=== PATIENT | male | born 1950 | race Caucasian/White ===

== ENCOUNTER 2019-04-29 18:47 | Emergency (ER) | payer MEDICARE, MEDICAID ==
--- NOTE | 2019-04-29 18:57 | EDM.PDOC ---
<DayaтатьянаGibran - Last Filed: 04/29/19 19:00> ED HPI GENERAL MEDICAL PROBLEM - General Chief Complaint: Chest Pain Stated Complaint: Chest Pain Time Seen by Provider: 04/29/19 18:47 Source of Information: Reports: Patient, EMS Notes Reviewed, Intermediate Records, RN, RN Notes Reviewed - History of Present Illness INITIAL COMMENTS - FREE TEXT/NARRATIVE: Patient is brought to the ED at [facility] via EMS for the evaluation of chest pain that started around 13:30 this afternoon. The chest pain resolved prior to presentation to this ER. Patient stated to the NH staff he also felt nausea. NH also felt the patient was tachy. Upon arrival to ER, patient denies any chest pain, SOB, abdominal pain. Denies any N/V/D. No focal neurological problems. Patient states he feels "just fine." He denies any other complaints. Onset: Today Onset Date: 04/29/19 Onset Time: 13:30 - Related Data Allergies Allergy/AdvReac Type Severity Reaction Status Date / Time aripiprazole [From Abilify] Allergy Cannot Verified 04/29/19 19:07 Remember Home Meds: Home Meds Bisacodyl 10 mg RC ASDIRECTED PRN 05/02/17 [History] Bisacodyl [Laxative] 5 mg PO ASDIRECTED PRN 05/02/17 [History] Carvedilol [Coreg] 12.5 mg PO BID 05/02/17 [History] Citalopram Hydrobromide [Celexa] 20 mg PO DAILY 05/02/17 [History] Clopidogrel [Plavix] 75 mg PO DAILY 05/02/17 [History] Docusate Sodium/Sennosides [Senna Plus] 2 tab PO DAILY 05/02/17 [History] amLODIPine [Norvasc] 10 mg PO BEDTIME 05/02/17 [History] atorvaSTATin [Lipitor] 40 mg PO BEDTIME 05/02/17 [History] carBAMazepine [Tegretol] 200 mg PO BID 05/02/17 [History] Past Medical History Cardiovascular History: Reports: CAD, High Cholesterol, Hypertension Genitourinary History: Reports: Chronic Renal Insuffiency Neurological History: Reports: CVA Psychiatric History: Reports: Addiction, Bipolar, Dementia, Depression, Psychosis ED ROS GENERAL - Review of Systems Review Of Systems: See Below Constitutional: Denies: Fever, Chills Respiratory: Denies: Shortness of Breath, Cough Cardiovascular: Denies: Chest Pain, Palpitations GI/Abdominal: Denies: Abdominal Pain, Nausea, Vomiting Skin: Reports: No Symptoms Neurological: Reports: No Symptoms ED EXAM, GENERAL - Physical Exam Exam: See Below Exam Limited By: No Limitations General Appearance: Alert, No Apparent Distress Respiratory/Chest: No Respiratory Distress, Lungs Clear, Normal Breath Sounds Cardiovascular: Normal Peripheral Pulses, Regular Rate, Rhythm Peripheral Pulses: 2+: Radial (L), Radial (R) GI/Abdominal: Normal Bowel Sounds, Soft, Non-Tender Neurological: Alert, Oriented Skin Exam: Warm, Dry, Intact, Normal Color EKG INTERPRETATION EKG Date: 04/29/19 Time: 18:47 Rhythm: NSR Rate (Beats/Min): 85 Mcleod: Normal P-Wave: Present QRS: Normal ST-T: Normal QT: Normal SC/PQ Interval: 0.19 Comparison: NA - No Prior EKG EKG Interpretation Comments: 1. NSR 2. Early repolarization Course - Vital Signs Last Recorded V/S: Last Vital Signs Temp 36.8 C 04/29/19 19:09 Pulse 84 04/29/19 19:09 Resp 16 04/29/19 19:09 BP 156/82 H 04/29/19 19:09 Pulse Ox 96 04/29/19 19:09 - Orders/Labs/Meds Orders: Active Orders 24 hr Category Date Time Status EKG Documentation Completion [RC] STAT Care 04/29/19 18:54 Active Chest 1V Frontal [CR] Stat Exams 04/29/19 18:54 Taken COMPREHENSIVE METABOLIC PN,CMP [CHEM] Stat Lab 04/29/19 19:05 Received CREATINE KINASE,CK [CHEM] Stat Lab 04/29/19 19:05 Received TROPONIN I [CHEM] Stat Lab 04/29/19 19:05 Received Labs: Laboratory Tests 04/29/19 Range/Units 19:05 WBC 8.4 (4.0-10.0) x10^3/uL RBC 4.48 L (4.5-6.0) x10^6/uL Hgb 13.7 L D (14.0-18.0) g/dL Hct 40.7 (40.0-52.0) % MCV 90.8 D (78.0-93.0) fL MCH 30.6 (26.0-32.0) pg MCHC 33.7 (32.0-36.0) g/dL RDW Coeff of Kassie 13.0 (10.0-15.0) % Plt Count 240 (130-400) x10^3/uL Add Manual Diff Yes Neutrophils % (Manual) 65 (50-80) % Band Neutrophils % 2 (0-6) % Lymphocytes % (Manual) 20 L (25-50) % Monocytes % (Manual) 10 (2-11) % Eosinophils % (Manual) 3 (0-4) % Departure - Departure Disposition: DC/Tfer to SNF 03 Clinical Impression: Atypical chest pain Forms: ED Department Discharge Additional Instructions: Plan 1. Rest today 2. Labwork negative for any acute coronary syndrome. Negative EKG, negative troponin 3. Follow up with primary provider as appropriate. - Problem List Review Problem List Initiated/Reviewed/Updated: Yes <Danny Casey - Last Filed: 04/29/19 20:41> Course - Re-Assessments/Exams Free Text/Narrative Re-Assessment/Exam: 04/29/19 19:30 Assumed care of patient at shift change. Patient has no complaints is quite confused and trying to ambulate unassisted. 04/29/19 20:40 Patient returned to care center via ambulance. Stable here in the ER. Departure - Departure Time of Disposition: 20:21 Reason for Transfer *Q: Other Condition: Fair - Problem List & Annotations (1) Atypical chest pain SNOMED Code(s): 618091788 Code(s): R07.89 - OTHER CHEST PAIN Status: Acute Priority: Low Current Visit: Yes - Problem List Review Problem List Initiated/Reviewed/Updated: Yes - Assessment/Plan Assessment:: atypical chest/abdominal pain Plan: Plan 1. Rest today 2. Labwork negative for any acute coronary syndrome. Negative EKG, negative troponin 3. Follow up with primary provider as appropriate.
[2019-04-29 19:41] LABS: CHLORIDE,CL 107 mmol/L (98-107); SODIUM,NA 141 mmol/L (136-145)
[2019-04-29 19:42] LABS: ANION GAP 14.6 mmol/L (10-20)
--- NOTE | 2019-04-30 09:31 | CR ---
[id number] RAD/RAD Chest PA or AP 1V EXAM: RAD Chest PA or AP 1V INDICATION: CHEST PAIN COMPARISON: August 15, 2010. DISCUSSION: Mild cardiomegaly central vascular congestion. No infiltrate, effusion, pneumothorax, or edema. IMPRESSION: No acute findings in the chest. Joe Verdin MD 04/29/19 1943 Thank you for allowing us to participate in the care of your patient.
== END 2019-04-29 20:21 ==
LOC: VM.ED 18:47
DX: R07.89 Other chest pain (principal); E78.00 Pure hypercholesterolemia, unspecified; I12.9 Hypertensive chronic kidney disease with stage 1 through stage 4 chronic kidney disease, or unspecified chronic kidney disease; N18.9 Chronic kidney disease, unspecified; Z86.73 Personal history of transient ischemic attack (TIA), and cerebral infarction without residual deficits; Z79.899 Other long term (current) drug therapy; Z88.8 Allergy status to other drugs, medicaments and biological substances
CPT/HCPCS: 36415; 71045; 80053; 81001; 82550; 84484; 85025; 93005; 93010; 99283-GF; 99285-25

== ENCOUNTER 2022-08-08 14:20 | Emergency (ER) | payer MEDICAID, MEDICARE | END 2022-08-08 15:15 | disposition home or self-care (01) | LOC: VM.ED 14:20 | DX: Z00.00 Encounter for general adult medical examination without abnormal findings (principal); I10 Essential (primary) hypertension; Z79.899 Other long term (current) drug therapy | CPT/HCPCS: 99283; 99284 ==